=== PATIENT | female | born 1995 | race Caucasian/White ===

== ENCOUNTER 2024-04-11 12:42 | Emergency (ER) | payer MEDICAID, SELFPAY ==
[2024-04-11 12:47] VITALS: BP 167/80; PULSE 113; RESP 18; TEMP 36.8; O2SAT 99
[2024-04-11 13:09] VITALS: BP 155/76
[2024-04-11 13:31] LABS: Abs Immature Grans 0.14 10^3/uL (0.0-0.06); Absolute Basophil Count 0.04 10^3/uL (0.0-0.2); Absolute Eosinophil Count 0.12 10^3/uL (0.0-0.7); Absolute Lymphocyte Count 1.49 10^3/uL (1.2-3.4); Absolute Monocyte Count 0.51 10^3/uL (0.1-0.8); Absolute Neutrophil Count 7.09 10^3/uL (1.2-6.7); Basophils % 0.4 %; Eosinophils % 1.3 %; HCT 33.3 % (36.0-46.0); HGB 10.7 g/dL (11.2-15.7); Immature Grans % 1.5 %; Lymphocytes % 15.9 %; MCH 25.8 pg (27.0-33.0); MCHC 32.1 % (32.0-36.0); MCV 80 fL (80-95); MPV 9.7 fL (8.0-11.0); Monocytes % 5.4 %; Neutrophils % 75.5 %; Platelet Count 218 10^3/uL (130-400); RBC 4.14 10^6/uL (3.93-5.22); RDW 14.6 % (11.7-14.6); RDW-SD 42.4 fL; WBC 9.39 10^3/uL (4.4-10.8)
[2024-04-11 13:47] LABS: ALT 41 U/L (14-59); AST 42 U/L (15-37); Albumin 2.6 g/dL (3.4-5.0); Alkaline Phosphatase 138 U/L (46-116); Anion Gap 9.2 mmol/L (3-11); BUN 12 mg/dL (7-18); Bilirubin, Total 0.32 mg/dL (0.2-1.0); CO2 26.8 mmol/L (21.0-32.0); CREATININE 0.7 mg/dL (0.55-1.02); Calcium 8.8 mg/dL (8.5-10.1); Chloride 104 mmol/L (98-107); Estimated GFR 121.49 (mL/min/1.73m2); Glucose 90 mg/dL (74-106); Potassium 4.3 mmol/L (3.5-5.1); Sodium 140 mmol/L (136-145); Uric Acid 5.8 mg/dL (2.6-6.0)
[2024-04-11 14:45] LABS: Bilirubin Small (Negative); Blood Large (Negative); Clarity Cloudy (Clear); Glucose Negative (Negative); Ketones Negative (Negative); Leukocyte Esterase Trace (Negative); Nitrite Negative (Negative); Urobilinogen 0.2 mg/dL (Up to 0.2)
[2024-04-11 14:57] LABS: Bacteria Moderate HPF (Negative); C & S Indicated? Yes; Casts Negative LPF (Negative); Crystals Negative HPF (Negative); Epithelial Cells Few HPF (Negative); Mucus Moderate (Negative); Other Cells Negative (Negative); RBC >50 HPF (0-2); WBC 0-2 HPF (0-5)
--- NOTE | 2024-04-11 15:53 | ED.GENADUL_ITS ---
Discharge Plan Disposition Patient Disposition: Transfer-Acute Inpatient Care Specific Acute Inpt Facility: Other Condition: Stable Discharge Details Clinical Impression: Elevated blood pressure reading, Constipation, complication Primary Care Provider: Jermain Desai ED Provider: Luis A Nicole Home Meds and New Rx's Prescriptions: No Action PNV cmb#95-ferrous fumarate-FA [] 28 mg iron- 800 mcg tablet 1 tab PO DAILY ferrous sulfate [Feosol] 325 mg (65 mg iron) tablet 325 mg PO DAILY Discharge Instructions Additional Instructions: PLEASE GO TO [facility], THEY WILL DIRECT YOU UP TO OB HPI General Date/Time Provider Initiated Documentation: 04/11/24 12:51 . Limitations to Documentation: no limitations . Information obtained by: patient . HPI Narrative: 29-year-old female 5 days after repeat presents for evaluation of abdominal pain constipation. She reports that she has had difficulty with bowel movements. She reports that she took 1 dose of MiraLAX this morning. Patient states that she has stopped taking the opiate. She was reporting some pain and afraid to go to the bathroom. She states that she feels lightheaded and feels like she might pass out. Denies any headache, visual change or chest pain. She reports that she is having persistent vaginal bleeding that is not excessive. She delivered with Dr. 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 no focal neurologic deficits Appropriate mood and affect Course Vital Signs Vital signs: Vital Signs Temperature 36.8 C 04/11/24 12:47 Pulse 113 H 04/11/24 12:47 Respiratory Rate 18 04/11/24 12:47 Blood Pressure 167/80 H 04/11/24 12:47 Pulse Oximetry 99 04/11/24 12:47 Temperature 36.8 C 04/11/24 12:47 Temperature Source Skin 04/11/24 12:47 Pulse 113 H 04/11/24 12:47 Respiratory Rate 18 04/11/24 12:47 Respiratory Effort Normal, Non-Labored 04/11/24 13:28 Blood Pressure 155/76 H 04/11/24 13:09 Blood Pressure Position Sitting 04/11/24 12:47 Pulse Oximetry 99 04/11/24 12:47 Oxygen Delivery Method Room Air 04/11/24 12:47 Oxygen Flow Rate 0 04/11/24 12:47 Pain Level 8 04/11/24 13:28 Lab/Test Results Lab/Test Results: 04/11/24 14:10 Urine - Reflex from Ua Urine Culture - Pending Laboratory Tests Range/Units 04/11/24 04/11/24 04/11/24 13:15 13:23 13:40 WBC (4.4-10.8) 10^3/uL 9.39 RBC (3.93-5.22) 10^6/uL 4.14 Hgb (11.2-15.7) g/dL 10.7 L Hct (36.0-46.0) % 33.3 L MCV (80-95) fL 80 MCH (27.0-33.0) pg 25.8 L MCHC (32.0-36.0) % 32.1 RDW (11.7-14.6) % 14.6 Plt Count (130-400) 10^3/uL 218 MPV (8.0-11.0) fL 9.7 Immature Gran % % 1.5 Neutrophils % % 75.5 Lymphocytes % % 15.9 Monocytes % % 5.4 Eosinophils % % 1.3 Basophils % % 0.4 Nucleated RBC % (0.0-0.3) % 0.0 Absolute Neutrophils (1.2-6.7) 10^3/uL 7.09 H Absolute Lymphocytes (1.2-3.4) 10^3/uL 1.49 Absolute Monocytes (0.1-0.8) 10^3/uL 0.51 Absolute Eosinophils (0.0-0.7) 10^3/uL 0.12 Absolute Basophils (0.0-0.2) 10^3/uL 0.04 PT (9.1-11.1) sec 10.0 INR (0.9-1.1) 1.0 APTT (23.6-32.8) sec 27.0 Sodium (136-145) mmol/L 140 Potassium (3.5-5.1) mmol/L 4.3 Chloride (98-107) mmol/L 104 Carbon Dioxide (21.0-32.0) mmol/L 26.8 Anion Gap (3-11) mmol/L 9.2 BUN (7-18) mg/dL 12 Creatinine (0.55-1.02) mg/dL 0.7 Est GFR (CKD-EPI 2020) (mL/min/1.73m2) 121.49 Glucose (74-106) mg/dL 90 Uric Acid Cancelled 5.8 Calcium (8.5-10.1) mg/dL 8.8 Total Bilirubin (0.2-1.0) mg/dL 0.32 AST (15-37) U/L 42 H ALT (14-59) U/L 41 Alkaline Phosphatase (46-116) U/L 138 H Total Protein (6.4-8.2) g/dL 7.0 Albumin (3.4-5.0) g/dL 2.6 L Urine Color (Yellow) Urine Clarity (Clear) Urine pH (5-8) Ur Specific [place] (1.005-1.025) Urine Protein (Neg-Trace) mg/dL Urine Ketones (Negative) mg/dL Urine Blood (Negative) Urine Nitrite (Negative) Urine Bilirubin (Negative) Urine Urobilinogen (Up to 0.2) mg/dL Ur Leukocyte Esterase (Negative) Urine RBC (0-2) HPF Urine WBC (0-5) HPF Ur Epithelial Cells (Negative) HPF Urine Crystals (Negative) HPF Urine Bacteria (Negative) HPF Urine Casts (Negative) LPF Urine Mucus (Negative) Urine Other (Negative) Ur Culture Indicated? Urine Glucose (Negative) mg/dL ABO/Rh A Negative Antibody Screen NEGATIVE Range/Units 04/11/24 14:10 WBC (4.4-10.8) 10^3/uL RBC (3.93-5.22) 10^6/uL Hgb (11.2-15.7) g/dL Hct (36.0-46.0) % MCV (80-95) fL MCH (27.0-33.0) pg MCHC (32.0-36.0) % RDW (11.7-14.6) % Plt Count (130-400) 10^3/uL MPV (8.0-11.0) fL Immature Gran % % Neutrophils % % Lymphocytes % % Monocytes % % Eosinophils % % Basophils % % Nucleated RBC % (0.0-0.3) % Absolute Neutrophils (1.2-6.7) 10^3/uL Absolute Lymphocytes (1.2-3.4) 10^3/uL Absolute Monocytes (0.1-0.8) 10^3/uL Absolute Eosinophils (0.0-0.7) 10^3/uL Absolute Basophils (0.0-0.2) 10^3/uL PT (9.1-11.1) sec INR (0.9-1.1) APTT (23.6-32.8) sec Sodium (136-145) mmol/L Potassium (3.5-5.1) mmol/L Chloride (98-107) mmol/L Carbon Dioxide (21.0-32.0) mmol/L Anion Gap (3-11) mmol/L BUN (7-18) mg/dL Creatinine (0.55-1.02) mg/dL Est GFR (CKD-EPI 2020) (mL/min/1.73m2) Glucose (74-106) mg/dL Uric Acid Calcium (8.5-10.1) mg/dL Total Bilirubin (0.2-1.0) mg/dL AST (15-37) U/L ALT (14-59) U/L Alkaline Phosphatase (46-116) U/L Total Protein (6.4-8.2) g/dL Albumin (3.4-5.0) g/dL Urine Color (Yellow) Red Urine Clarity (Clear) Cloudy Urine pH (5-8) 6.0 Ur Specific [place] (1.005-1.025) 1.020 Urine Protein (Neg-Trace) mg/dL >=300 H Urine Ketones (Negative) mg/dL Negative Urine Blood (Negative) Large H Urine Nitrite (Negative) Negative Urine Bilirubin (Negative) Small H Urine Urobilinogen (Up to 0.2) mg/dL 0.2 Ur Leukocyte Esterase (Negative) Trace H Urine RBC (0-2) HPF >50 H Urine WBC (0-5) HPF 0-2 Ur Epithelial Cells (Negative) HPF Few Urine Crystals (Negative) HPF Negative Urine Bacteria (Negative) HPF Moderate Urine Casts (Negative) LPF Negative Urine Mucus (Negative) Moderate Urine Other (Negative) Negative Ur Culture Indicated? Yes Urine Glucose (Negative) mg/dL Negative ABO/Rh Antibody Screen Medical Decision Making Urgent evaluation of the patient. She did not deliver at this hospital and there are no records. She denies any complications during or delivery. She presents with concerns for constipation however she is noted to have elevated blood pressure on arrival. This is concerning for preeclampsia. Will place IV start to get lab work. I have discussed with her OB provider Dr. Wild at [facility] who would like to admit her. At this time the patient blood pressure has come down to 140. She is feeling okay and I feel that she can go by private vehicle with her driving. The patient agrees to this plan. Lab work that was obtained at this facility does not show significant anemia or thrombocytopenia. Her coags are negative. She does not have significant derangement in her liver function. Unlikely to be severe preeclampsia. She did provide a urine sample and she does have significant amount of urine protein however she also has a large amount of blood. This likely makes that finding unreliable. Patient understands to go directly to [facility] and will be admitted there. Medical Records Medical records reviewed: Yes I reviewed the patient's medical records. Lab Data Lab results reviewed: Yes I reviewed the patient's lab results. Quality:SDOH Health Related Social Needs: No Data to Display PFSH All Active Problems complication (Acute) Constipation (Acute) Elevated blood pressure reading (Acute) Social History Smoking/Tobacco Use Status: Never Smoking risk assessment performed?: Yes Alcohol Intake: former Drug use: Never Substance use type: does not use Housing: apartment Do you feel safe at home: Yes Do you feel safe in your relationship?: Yes
== END 2024-04-11 14:21 | disposition short-term general hospital (02) ==
LOC: ER 14:21
PROVIDERS: Emergency Provider Emergency Medicine; PCP Nurse Practitioner Family
DX: O90.89 Other complications of the puerperium, not elsewhere classified (principal); K59.00 Constipation, unspecified; R03.0 Elevated blood-pressure reading, without diagnosis of hypertension
CPT/HCPCS: 80053; 86850; 86900; 86901; 99285; 81003; 81015; 84550; 85025; 85610; 85730; 87086

== ENCOUNTER 2024-06-04 14:44 | Emergency (ER) | payer MEDICAID, SELFPAY ==
[2024-06-04 14:46] VITALS: BP 165/91; PULSE 94; RESP 16; TEMP 36.4; O2SAT 92
[2024-06-04 15:23] LABS: Bilirubin Negative (Negative); Blood Negative (Negative); Clarity Clear (Clear); Glucose Negative (Negative); Ketones Negative (Negative); Leukocyte Esterase Negative (Negative); Nitrite Negative (Negative); Specific Gravity 1.015 (1.005-1.025); Urobilinogen 0.2 mg/dL (Up to 0.2)
[2024-06-04 15:43] LABS: *AMPHETAMINES SCREEN URINE Negative (Negative); *BARBITURATES SCREEN URINE Negative (Negative); *BENZODIAZEPINES SCREEN URINE Negative (Negative); Cannabinoids THC Negative (Negative); Cocaine Screen,Urine Negative (Negative); OPIATES URINE SCREEN Negative (Negative); Tricyclic Antidepressants Negative (Negative)
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
--- NOTE | 2024-06-04 17:01 | PDOC.MHCN_ITS ---
Date of service: 06/04/24 Time of Service: 16:46 PHQ-9 Over the last 2 weeks, how often have you been bothered by any of the following problems? 1. Little interest or pleasure in doing things: more than half the days 2. Feeling down, depressed, or hopeless: several days 3. Trouble falling or staying asleep, or sleeping too much: more than half the days 4. Feeling tired or having little energy: more than half the days 5. Poor appetite or overeating: more than half the days 6. Feeling bad about yourself - or that you are a failure or have let yourself and your family down: more than half the days 7. Trouble concentrating on things, such as reading the newspaper or watching television: more than half the days 8. Moving or speaking so slowly that other people could have noticed? - Or the opposite - being so fidgety or restless that you have been moving around a lot more than usual: more than half the days 9. Thoughts that you would be better off or of hurting yourself in some way: several days Total score: 16 If you checked off any problems, how difficult have these problems made it for you to do your work, take care of things at home, or get along with other people?: very difficult Source: Developed by Drs. Quinn Mcallister, Sera Campuzano, Simone Monge and colleagues, with an educational fabrice from [employer]. Suicide Severity Rate CSSRS2 Have you been thinking about how you might do this?: Yes Have you had these thoughts and had some intention of acting on them?: Yes Have you started to work out or worked out the details of how to kill yourself? Do you intend to carry out this plan?: No CSSRS3 Have you ever done anything, started to do anything or prepared to do anything to end your life?: Yes CSSRS4 Was this within the past three months?: No Screening Score Total Score: 2 Screening: Positive Mental Health Emergency Note Release [facility] release signed:: No Reason for Visit Jesus and this insurance writer spoke on the phone after her cousin called in for concern of her safety. Jesus reported on the phone she did not know what to do with her life, was overwhelmed, and having thoughts to end her life. This insurance writer asked if she would be willing to present to the hospital for an assessment and go to inpatient treatment. Jesus agreed, gave her children to her mother for now, and headed to the hospital. Prior to this phone call Jesus was unknown to both this insurance writer and [facility]. In the last 2 weeks has the pt presented for ES prior to today?: Unknown Client Information Client is: New Well Housed: Yes Non Suicidal Self Injury Current: No History: No Safety Risk/Harm to Self or Others Current Ideation to Harm Self or Others: Yes to self. (Jesus reports she is overwhelmed and not sure what to do any more. Jesus is presenting with very passive SI not able to disclose plan, intent, or access. ) Intent: no, has no intent. Plan: no.does not have a plan. History of suicide attempt: yes,history of suicide attempt reported. Details of previous suicide attempt: three weeks ago Jesus took all of her anxiety medications but reports she did not know her intention behind this. Risk: Does risk to harm exist?: No Risk: N/A Duty to warn indicated: No Asssessment/Mental Status Appearance: Unremarkable Attitude: Cooperative Behavior: Unremarkable Speech: Normal Affect: Cogruent with mood Mood: Stressed and Depressed Thought process: Unremarkable Hallucinations: No Delusions: No Attention: Unremarkable Perception: Not impaired Orientation: Fully orientated Memory: Intact Insight: Fair Judgement: Fair Neurovegetative Symptoms Sleep: Decrease Appetitie: Decrease Interests: No change Energy: No change Libido: No change Substance Use: Do you use nicotine?: No Have you used substances in the last 7 days?: No Additional Issues: Assaultive/Threatening Behavior: No Medical Concerns: No Client engaged in active self harm w/weapon: No Threatening to run away: No Child reported abuse/neglect: No Voluntarily presenting for services: Yes Domestic violence is a concern: No Extreme Psychosis or extreme behavior is present: No Impression Jesus presents to this insurance writer via Zoom, laying in her hospital bed. Jesus reports she feels okay currently but she is trying to sleep as she has not been able to sleep in days. Jesus also reports she has not eaten or drank anything since 1130am yesterday. Jesus reports that she is not doing well, overwhelmed, and does not know what to do. Jesus reports that she does not have a plan to harm herself but if someone offered to do it or offered her a way she would not think twice about saying yes. Jessu reports about three weeks ago she took all of her prescribed anxiety medications, reports this was off brand Zoloft. Jesus was not hospitalized after this and did not talk to anyone about it. Jesus reports her OBGYN prescribed this for and reports she is diagnosed with anxiety. Jesus reports that she is not on any other medications and she has not called her doctor for a refill since then. Jesus has a primary care doctor in [facility] and an OBGYN in [place] but no other professional supports. Jesus disclosed having good personal supports. Jesus presents as tired, withdrawn, and like she would benefit from treatment. Jesus could benefit from medication, therapy, and outpatient services upon her return to the community as well. Plan/Disposition Recommended Disposition: Hospitalization (Referrals will be sent today 06/04!) facilities contacted. Plan: Jesus will remain at [facility] and wait for inpatient psychiatric treatment. Person reported agreement to plan: Yes Reports/communication Outcome discussed with: ED/Personnel
[2024-06-04] MEDS: Bacitracin 30 GM TUBE TP (21:37)
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
[2024-06-05 07:19] VITALS: BP 115/79; PULSE 95; RESP 16; TEMP 37.4; O2SAT 100
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
[2024-06-05] MEDS: Sertraline 25 MG TAB PO (09:31)
--- NOTE | 2024-06-05 12:26 | PDOC.MHPN2 ---
Date of service: 06/05/24 Time of Service: 12:29 Mental Health Emergency Note Release [facility] release signed:: Yes Reason for Visit The client is new to [facility] as of 06.04.24 when she was first screened by MYLES Sotelo. The client at the time was seeking her first ever inpatient hospitalization. Today she has had a change of heart and would like to go home. In the last 2 weeks has the pt presented for ES prior to today?: Unknown Impression The client reported to MYLES Sotelo during her first assessment that she took an entire bottle of her Zoloft medication 3 weeks ago and did not tell anyone or seek medical attention. Per Ashleigh's note the client was aware that she could have . She completed all screening tools on 06.04.24. The client is a 29-year-old, single, female and mother of a [id number] and 2-month-old. She lives with her sister in [place], [place]. 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 She uses She/her pronouns. All underrepresented identifiers were honored during this assessment. The client, although accepted by [facility] wishes to instead safety plan home and get support on an outpatient basis. The client is open to referrals for case management and therapy. The client presented in bed sitting up watching TV. She is polite and friendly. She is at times tearful when she talks about being away from her children. She identified her mother, sister and cousin as her supports. The client agreed to making an appointment with her PCP for a follow up and doing check in calls for the next two days. Resources [employer] reviewed and given:: 988 and Other ([address] Por[address]) Plan/Disposition Recommended Disposition: [facility] Services [facility] Services: Therapy and Other. Plan: Client will follow up with her PCP tomorrow and is open to referrals that will be put in by this clinician. Person reported agreement to plan: Yes Reports/communication Outcome discussed with: ED/Personnel
== END 2024-06-05 11:48 | disposition home or self-care (01) ==
PROVIDERS: Emergency Medicine; Emergency Provider Emergency Medicine; PCP Nurse Practitioner Family
DX: R45.851 Suicidal ideations (principal); F53.0 Postpartum depression; Z91.414 Personal history of adult intimate partner abuse
CPT/HCPCS: 00123; 80307; 96127; 99285; 81003